=== PATIENT | female | born 2000 | race Caucasian/White ===

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

== ENCOUNTER → 2022-06-07 | Outpatient (CLI) | payer OTHER ==
--- NOTE | 2022-06-07 14:06 | Diagnostic Imaging Report ---
INDICATION: Neck pain and difficulty breathing. Upper back pain. 2 view chest 06/07/2022. FINDINGS: 2 views of the chest. There is a marked scoliotic deformity of the thoracolumbar spine. There is focal density at the left lung base which could represent atelectasis versus infiltrate. There are no significant effusions although a tiny left effusion not excluded. There is no pneumothorax. Heart and pulmonary vasculature normal. IMPRESSION: 1. Left base atelectasis versus infiltrate with tiny adjacent effusion suspected. Report was faxed to office of MARTHA Hernandez by radha at 2:06p.m. Dictated by: Dictated on workstation # [id number]
--- NOTE | 2022-06-07 14:34 | Diagnostic Imaging Report ---
INDICATION: Neck pain. COMPARISON: None available. TECHNIQUE: Radiographs of the cervical spine dated 06/07/2022. FINDINGS: Straightening of the normal cervical lordosis without significant anterolisthesis or retrolisthesis. Vertebral body heights are well-maintained. Disc space heights are well-maintained. The dens is not well-visualized secondary to overlying teeth and osseous structures. The lateral masses are well seated. No acute fracture or dislocation. No destructive osseous process. Prevertebral soft tissues are unremarkable. IMPRESSION: Straightening of the normal cervical lordosis which may relate to muscle spasm or simply be positional. No acute osseous abnormality. Dictated by: Dictated on workstation # [id number]
== END ==
LOC: RAD 13:08
PROVIDERS: ATTEND Nurse Practitioner Family
DX: M54.2 Cervicalgia (principal); M62.838 Other muscle spasm; R06.02 Shortness of breath
CPT/HCPCS: 71046; 72040